=== PATIENT | male | born 1985 | race African-American/Black ===

== ENCOUNTER 2018-04-16 16:07 | Emergency (ER) | payer BC, OTHER ==
[2018-04-16 16:14] VITALS: BP 133/84; PULSE 71; RESP 18; TEMP 97.7
[2018-04-16] MEDS ORDERED: IBUPROFEN 800 MG TAB PO STA (16:26)
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
--- NOTE | 2018-04-16 17:13 | XR ---
PROCEDURE: XR lumbar spine 3V DATE AND TIME: 04/16/2018 4:57 PM CLINICAL INDICATION: Strain; pain TECHNIQUE: Department protocol. 3V COMPARISON: None FINDINGS: There is no fracture or malalignment. The soft tissues are unremarkable. IMPRESSION: NO ACUTE PROCESS.
== END 2018-04-16 17:29 | disposition home or self-care (01) ==
LOC: EC 16:07
DX: S39.012A Strain of muscle, fascia and tendon of lower back, initial encounter (principal); J45.909 Unspecified asthma, uncomplicated; F17.200 Nicotine dependence, unspecified, uncomplicated; Z86.718 Personal history of other venous thrombosis and embolism; Z98.890 Other specified postprocedural states; X50.0XXA Overexertion from strenuous movement or load, initial encounter; Y92.69 Other specified industrial and construction area as the place of occurrence of the external cause; Y99.0 Civilian activity done for income or pay
CPT/HCPCS: 72100; 99283

== ENCOUNTER → 2019-09-16 | Outpatient (CLI) | payer OTHER ==
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
== END | disposition home or self-care (01) ==
LOC: RAD 13:36
PROVIDERS: ATTEND Emergency Medicine
DX: M65.4 Radial styloid tenosynovitis [de Quervain] (principal); Z89.021 Acquired absence of right finger(s)

== ENCOUNTER 2020-03-09 15:12 | Emergency (ER) | payer OTHER ==
[2020-03-09 15:30] VITALS: RESP 18
[2020-03-09] MEDS ORDERED: SODIUM CHLORIDE 0.9% 500 ML 500 ML IV ONE (15:36)
[2020-03-09] MEDS ORDERED: HYDROmorphone 0.5 MG/0.5 ML SYRINGE IM PRN (15:37)
[2020-03-09] MEDS ORDERED: SODIUM CHLORIDE 0.9% 1,000 ML IV SCH (15:45)
[2020-03-09] MEDS ORDERED: RX INFO: IV CONTRAST WAS GIVEN 1 EACH MISC MISCELLANE PRN (15:58)
[2020-03-09] MEDS ORDERED: HYDROmorphone 0.5 MG/0.5 ML SYRINGE IVP PRN (16:06)
[2020-03-09 16:21] LABS: Anisocytosis Slight; Basophils # (A) 0.1 k/uL (0-0.2); Basophils % (A) 1 %; Eosinophils # (A) 0.4 k/uL (0-0.7); Eosinophils % (A) 5 %; HCT 37.8 % (39.0-53.0); HGB 11.8 gm/dL (13.0-17.5); Hypochromasia Slight; Lymphocytes # (A) 1.5 k/uL (1.0-4.8); Lymphocytes % (A) 20 %; MCHC 31.2 g/dL (31.0-37.0); MCV 95.9 fL (80.0-100.0); Mean Platelet Volume 7.4; Monocytes # (A) 0.6 k/uL (0-1.0); Monocytes % (A) 8 %; Neutrophils # (A) 4.7 k/uL (1.3-7.7); Neutrophils % (A) 63 %; Platelet Count 711 k/uL (150-450); RBC 3.93 m/uL (4.30-5.90); WBC 7.5 k/uL (3.8-10.6)
[2020-03-09 16:29] LABS: Partial Thromboplastin Time 22.2 sec (22.0-30.0); Prothrombin Time 10.1 sec (9.0-12.0)
[2020-03-09 16:32] LABS: ALT 58 U/L (4-49); AST 35 U/L (17-59); African American GFR (CKD) >90 (>60 ml/min/1.73 sqM); Albumin 4.2 g/dL (3.5-5.0); Alkaline Phosphatase 132 U/L (38-126); Anion Gap 7 mmol/L; Blood Urea Nitrogen 17 mg/dL (9-20); Calcium 9.7 mg/dL (8.4-10.2); Carbon Dioxide 24 mmol/L (22-30); Chloride 105 mmol/L (98-107); Glucose 93 mg/dL (74-99); Non-African American GFR(CKD) >90 (>60 ml/min/1.73 sqM); Potassium 4.3 mmol/L (3.5-5.1); Sodium 136 mmol/L (137-145); Total Protein 7.4 g/dL (6.3-8.2)
[2020-03-09 17:04] VITALS: TEMP 97.9
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
[2020-03-09] MEDS ORDERED: HYDROmorphone 0.5 MG/0.5 ML SYRINGE IVP STA (19:45)
[2020-03-09] MEDS ORDERED: RIVAROXABAN 15 MG TAB PO STA (19:45)
[2020-03-09 20:10] VITALS: BP 133/95; PULSE 66
== END 2020-03-09 20:16 | disposition home or self-care (01) ==
LOC: EC 15:12
DX: I82.411 Acute embolism and thrombosis of right femoral vein (principal); S70.11XD Contusion of right thigh, subsequent encounter; Z79.01 Long term (current) use of anticoagulants; Z87.891 Personal history of nicotine dependence; Z86.718 Personal history of other venous thrombosis and embolism; Z87.828 Personal history of other (healed) physical injury and trauma
CPT/HCPCS: 36415; 80053; 83605; 85025; 85610; 85730; 93971; 75635; 99284; 96374; 96376; 96361 ×4; J1170; Q9967

== ENCOUNTER → 2021-01-12 | Outpatient (CLI) | payer OTHER ==
[2021-01-12 18:49] LABS: Basophils # (A) 0.04 X 10*3/uL (0.00-0.10); Eosinophils # (A) 0.48 X 10*3/uL (0.04-0.35); Eosinophils % (A) 11.6 %; HCT 47.1 % (39.6-50.0); HGB 16.1 g/dL (13.0-17.0); Lymphocytes # (A) 1.82 X 10*3/uL (0.90-5.00); Lymphocytes % (A) 43.9 %; MCH 30.2 pg (27.0-32.0); MCHC 34.2 g/dL (32.0-37.0); MCV 88.4 fL (80.0-97.0); Mean Platelet Volume 11.2 fL (9.5-12.2); Monocytes # (A) 0.49 X 10*3/uL (0.20-1.00); Monocytes % (A) 11.8 %; Neutrophils % (A) 31.2 %; Platelet Count 252 X 10*3/uL (140-440); RBC 5.33 X 10*6/uL (4.40-5.60); RDW 14.2 % (11.5-14.5); WBC 4.15 X 10*3/uL (4.50-10.00)
[2021-01-12 23:28] LABS: African American GFR (CKD) 127.8 (60.0-200.0); Non-African American GFR(CKD) 110.3 (60.0-200.0)
[2021-01-12 23:35] LABS: T4, Free (Free Thyroxine) 1.2 ng/dL (0.80-1.80)
== END | disposition home or self-care (01) ==
LOC: LABWHC1 12:18
PROVIDERS: ATTEND Dermatology
DX: L30.9 Dermatitis, unspecified (principal); L29.8 Other pruritus
CPT/HCPCS: 36415; 82565; 84439; 84443; 84450; 84460; 84520; 85025

== ENCOUNTER → 2022-10-17 | Outpatient (CLI) | payer OTHER ==
--- NOTE | 2022-10-17 13:57 | NM ---
EXAMINATION TYPE: NM bone 3 phase DATE OF EXAM: 10/17/2022 COMPARISON: Outside right knee x-ray March 21, 2022 HISTORY: Right lower extremity pain worse in the knee but also on foot Triple phase bone scintigraphy was performed following the injection of 24.7 mCi Tc 99m MDP. Immedia te images and 5 hours post injection images acquired. Dynamic arterial imaging bilateral knees along with soft tissue phase and delayed phase imaging of bilateral knees, ankle, and feet. FINDINGS: There is no significant increased radiotracer uptake in the right knee on dynamic arterial phase imag ing versus opposite left side. Soft tissue phase imaging shows no suspicious increased uptake in the right knee and ankle are foot versus the opposite left side. Delayed imaging shows no areas of asymmetric increased radiotracer uptake to suggest asymmetric incre ased degenerative change. Imaging of the pelvis shows normal bladder uptake without suspicious radiot racer uptake. IMPRESSION: No scintigraphic evidence of abnormal three-phase radiotracer uptake to the right lower e xtremity to suggest RSD.
== END | disposition home or self-care (01) ==
LOC: RADNMMAIN 07:48
PROVIDERS: ATTEND Psychiatry & Neurology Neurology
DX: G90.521 Complex regional pain syndrome I of right lower limb (principal)
CPT/HCPCS: 78315; A9503

== ENCOUNTER → 2023-11-27 | Outpatient (CLI) | payer OTHER ==
--- NOTE | 2023-11-28 07:18 | CA ---
Transthoracic Echo Report Name: Daryl Bradford Age: 38 Gender: M : 1985 Exam Date: 11/27/2023 08:45 Exam Location: [facility] Ht (in): 72 Wt (lb): 180 Ordering Physician: Francis Wiggins MD Attending/Referring Phys: Sydney Rivers [facility] Maintenance Department Technician Kassandra Camacho RDCS Procedure CPT: Indications: R94.31 ABNORMAL EKG Cardiac Hx: Technical Quality: Good Contrast 1: Total Dose (mL): Contrast 2: Total Dose (mL): MEASUREMENTS (Male / Female) Normal Values 2D ECHO LV Diastolic Diameter PLAX 4.9 cm 4.2 - 5.9 / 3.9 - 5.3 cm LV Systolic Diameter PLAX 3.6 cm IVS Diastolic Thickness 1.2 cm 0.6 - 1.0 / 0.6 - 0.9 cm LVPW Diastolic Thickness 1.0 cm 0.6 - 1.0 / 0.6 - 0.9 cm LV Relative Wall Thickness 0.4 RV Internal Dim ED PLAX 2.5 cm LV Diastolic Volume MOD BP 86.6 cm??? 67 - 155 / 56 - 104 cm??? LV Systolic Volume MOD BP 30.0 cm??? 22 - 58 / 19 - 49 cm??? LV Ejection Fraction MOD BP 65.4 % >= 55 % LV Diastolic Volume MOD 4C 87.2 cm??? LV Systolic Volume MOD 4C 27.9 cm??? LV Ejection Fraction MOD 4C 68.0 % LV Diastolic Length 4C 7.7 cm LV Systolic Length 4C 6.8 cm LV Diastolic Volume MOD 2C 85.4 cm??? LV Systolic Volume MOD 2C 31.2 cm??? LV Ejection Fraction MOD 2C 63.4 % LV Diastolic Length 2C 7.8 cm LV Systolic Length 2C 6.5 cm LA Volume 60.9 cm??? 18 - 58 / 22 - 52 cm??? LA Volume Index 29.8 cm???/m??? 16 - 28 cm???/m??? M-MODE Aortic Root Diameter MM 3.1 cm LA Systolic Diameter MM 3.8 cm LA Ao Ratio MM 1.2 AV Cusp Separation MM 2.0 cm DOPPLER AV Peak Velocity 124.1 cm/s AV Peak Gradient 6.2 mmHg MV Area PHT 2.6 cm??? Mitral E Point Velocity 57.7 cm/s Mitral A Point Velocity 44.1 cm/s Mitral E to A Ratio 1.3 MV Deceleration Time 292.8 ms FINDINGS Left Ventricle Left ventricular ejection fraction is estimated at 55-60%. Mildly increased septal wall thickness. Normal left ventricular systolic function with no obvious regional wall motion abnormalities. Right Ventricle Normal right ventricular size and function. Right ventricular systolic pressure within normal limits. Right Atrium Normal right atrial size. Left Atrium Mildly increased left atrial volume. Mildly increased left atrial area. Mitral Valve Structurally normal mitral valve. Mild mitral regurgitation. No mitral stenosis. Aortic Valve No aortic valve stenosis or regurgitation. Tricuspid Valve Structurally normal tricuspid valve. Trace tricuspid regurgitation. Pulmonic Valve Structurally normal pulmonic valve. Trace pulmonic regurgitation. No pulmonic stenosis. Pericardium No pericardial or pleural effusion. Aorta Normal size aortic root and proximal ascending aorta. CONCLUSIONS Normal LV systolic function. The ejection fraction is 55-60% Normal RV systolic function Normal pulmonary artery systolic pressure Overall normal intracardiac valves No pericardial effusion Previewed by: Dr. Trevor Dominguez MD (Electronically Signed) Final Date: 28 Nov 2023 07:18
== END | disposition home or self-care (01) ==
LOC: RADECHMAIN 08:35
PROVIDERS: ATTEND Family Medicine
DX: R94.31 Abnormal electrocardiogram [ECG] [EKG] (principal)
CPT/HCPCS: 93306

== ENCOUNTER 2024-01-31 05:31 | Emergency (ER) | payer OTHER ==
[2024-01-31 05:35] VITALS: TEMP 98.4
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
[2024-01-31 06:17] LABS: Basophils % (A) 1 %; Eosinophils # (A) 0.4 k/uL (0-0.7); Eosinophils % (A) 9 %; HCT 44.4 % (39.0-53.0); HGB 15.2 gm/dL (13.0-17.5); Lymphocytes # (A) 1.5 k/uL (1.0-4.8); Lymphocytes % (A) 36 %; MCH 31.5 pg (25.0-35.0); MCHC 34.3 g/dL (31.0-37.0); MCV 91.8 fL (80.0-100.0); Mean Platelet Volume 8.2; Monocytes # (A) 0.5 k/uL (0-1.0); Monocytes % (A) 11 %; Neutrophils # (A) 1.7 k/uL (1.3-7.7); Neutrophils % (A) 40 %; Platelet Count 262 k/uL (150-450); RBC 4.83 m/uL (4.30-5.90); RDW 13.5 % (11.5-15.5); WBC 4.3 k/uL (3.8-10.6)
[2024-01-31 06:34] LABS: ALT 19 U/L (4-49); AST 32 U/L (17-59); African American GFR (CKD) >90 (>60 ml/min/1.73 sqM); Albumin 4.5 g/dL (3.5-5.0); Alkaline Phosphatase 58 U/L (38-126); Anion Gap 7 mmol/L; Blood Urea Nitrogen 8 mg/dL (9-20); Calcium 9.7 mg/dL (8.4-10.2); Carbon Dioxide 22 mmol/L (22-30); Chloride 110 mmol/L (98-107); Glucose 100 mg/dL (74-99); Lipase 71 U/L (23-300); Magnesium 1.9 mg/dL (1.6-2.3); Non-African American GFR(CKD) >90 (>60 ml/min/1.73 sqM); Sodium 139 mmol/L (137-145); Total Bilirubin 1.1 mg/dL (0.2-1.3); Total Protein 7.5 g/dL (6.3-8.2)
[2024-01-31 06:47] LABS: INR 0.9 (<1.2); Partial Thromboplastin Time 24.9 sec (22.0-30.0); Prothrombin Time 10.4 sec (10.0-12.5)
[2024-01-31 07:22] VITALS: BP 128/94; PULSE 56; RESP 18
--- NOTE | 2024-01-31 07:31 | XR ---
EXAMINATION TYPE: XR chest 1V DATE OF EXAM: 01/31/2024 COMPARISON: 03/16/2016 INDICATION: Chest heaviness TECHNIQUE: Single frontal view of the chest is obtained. FINDINGS: The heart size is normal. The pulmonary vasculature is normal. The lungs are clear. IMPRESSION: 1. No acute pulmonary process.
== END 2024-01-31 07:22 | disposition home or self-care (01) ==
LOC: EC 05:31
DX: R07.9 Chest pain, unspecified (principal); Z87.891 Personal history of nicotine dependence
CPT/HCPCS: 36415; 71045; 80053; 83690; 83735; 84484; 85025; 85379; 85610; 85730; 93005; 99285

== ENCOUNTER → 2024-09-16 | Outpatient (CLI) | payer OTHER ==
--- NOTE | 2024-09-16 12:22 | US ---
EXAMINATION TYPE: US groin RT DATE OF EXAM: 09/16/2024 COMPARISON: NONE CLINICAL INDICATION: Male, 38 years old with history of Z98.890 OTHER SPECIFIED POSTPROCEDURAL STATES ; Hernia repair in RLQ September 2015, new onset of pain, no bulge, no known injury TECHNIQUE: Soft tissue right groin FINDINGS: At area of concern within RLQ two shadowing areas are present. Unknown etiology, normal po st surgical changes versus new anomaly. No change with valsalva. Two normal appearing lymph nodes. IMPRESSION: 1. No suspicious acute changes to suggest recurrent hernia identified. [facility], , 09/16/2024 12:20 PM
== END | disposition home or self-care (01) ==
LOC: RADUSWWP 09:35
PROVIDERS: ATTEND Family Medicine
DX: Z98.890 Other specified postprocedural states (principal)

== ENCOUNTER → 2025-02-05 | Outpatient (CLI) | payer OTHER ==
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
== END | disposition home or self-care (01) ==
LOC: RADCTMAIN 13:56
PROVIDERS: ATTEND Orthopaedic Surgery Hand Surgery
DX: M79.5 Residual foreign body in soft tissue (principal)